=== PATIENT | male | born 2000 | race Two or more races ===

== ENCOUNTER 2025-06-30 21:46 | Emergency (ER) | payer OTHER ==
[~2025-06-30] VITALS: Ht 172.7 cm; Wt 83.9 kg
[2025-06-30 21:58] VITALS: BP 149/94; TEMP 98.6; O2SAT 99
--- NOTE | 2025-06-30 21:59 | NUR ---
BIBS RT EAR COTTON SWAB STUCK
--- NOTE | 2025-06-30 22:16 | NUR ---
Patient discharged to home in stable condition. Written and verbal after care instructions given. Patient verbalizes understanding of instruction.
== END 2025-06-30 22:43 | disposition home or self-care (01) ==
LOC: ER 21:53
DX: T16.1XXA Foreign body in right ear, initial encounter (principal); Z91.048 Other nonmedicinal substance allergy status; Z60.2 Problems related to living alone; W44.F9XA Other object of natural or organic material, entering into or through a natural orifice, initial encounter; Y93.89 Activity, other specified; Y92.89 Other specified places as the place of occurrence of the external cause; Y99.8 Other external cause status